=== PATIENT | female | born 1970 | race Caucasian/White ===

== ENCOUNTER → 2019-06-10 13:00 | Outpatient (CLI) | payer OTHER, SELFPAY ==
--- NOTE | ~2019-06-10 | XR_ITS ---
XR chest 2V 06/10/2019 13:23 Indication: Lower respiratory infection. Cough and shortness of breath. Procedure: 2 view chest Comparison: Comparison to multiple prior studies sequentially, with oldest reviewed study dated 07/2013. Findings: Heart size is normal. No focal air space disease, pulmonary edema, pleural effusion or susp ected pneumothorax. No acute osseous abnormality. Impression: 1: No acute cardiopulmonary disease. Reviewed, dictated and finalized at location B. OMER OPERATIONS MANAGER Impression: 1: No acute cardiopulmonary disease.
== END ==
PROVIDERS: PCP Family Medicine; Visit Provider Physician Assistant
DX: J22 Unspecified acute lower respiratory infection (principal)
CPT/HCPCS: 71046

== ENCOUNTER 2019-12-03 15:58 | Outpatient (CLI) | payer OTHER, SELFPAY ==
--- NOTE | ~2019-12-03 | MM_ITS ---
EXAMINATION: MM screening clint BI w kyree HISTORY: Screening mammogram TECHNIQUE: Craniocaudal and mediolateral oblique 3-D tomosynthesis images were obtained and synthetic 2-D images were generated. CAD analysis was submitted and interpreted. COMPARISON: 10/01/2018, 09/29/2017, 09/13/2016 BREAST PARENCHYMAL COMPOSITION: There are scattered areas of fibroglandular density. FINDINGS: There is stable focal asymmetry in the upper outer quadrant of the right breast. There is n o evidence of suspicious mass, calcification, or architectural distortion to suggest malignancy in ei ther breast. There has been no suspicious interval change. IMPRESSION: 1. No mammographic evidence of malignancy. 2. Recommend routine screening mammography in one year. BI-RADS Category 2: Benign finding(s). Reviewed, dictated and finalized at location A.
== END 2019-12-03 15:59 | disposition home or self-care (01) ==
PROVIDERS: PCP Family Medicine
DX: Z12.31 Encounter for screening mammogram for malignant neoplasm of breast (principal)
CPT/HCPCS: 77063; 77067

== ENCOUNTER 2020-03-28 01:25 | Outpatient (CLI) | payer OTHER, SELFPAY ==
[2020-03-29 01:24] LABS: SARS-CoV-2 RNA PCR Negative
== END 2020-03-28 01:26 | disposition home or self-care (01) ==
LOC: ANHCOVIDDT 01:25
PROVIDERS: PCP Family Medicine; Visit Provider Internal Medicine Gastroenterology
DX: Z01.818 Encounter for other preprocedural examination (principal); Z20.828 Contact with and (suspected) exposure to other viral communicable diseases
CPT/HCPCS: 87635; C9803; U0003

== ENCOUNTER 2020-03-31 01:57 | Day surgery (SDC) | payer OTHER, SELFPAY ==
[2020-03-25 14:17] VITALS: BMI 49.8
--- NOTE | 2020-03-30 09:37 | WPDANESEPPF ---
Anes - Initial Pre Proc Eval Procedure: Operation Date: 03/31/20 08:00 Proposed Procedures p Screening Colonoscopy - Arturo Mora MD Date/Time: 03/30/20 09:37 Surgeon: Arturo Mora MD Pre Op Diagnosis: Neoplasm Screening Patient Data Age: 49 Gender: F Height: 1.65 m Weight: 136 kg Allergies Allergy/AdvReac Type Severity Reaction Status Date / Time estrogens, conjugated Allergy Unknown UNKNOWN Verified 03/31/20 06:35 morphine Allergy Unknown ITCHING Verified 03/31/20 06:35 Home Medications Medication Instructions Recorded Confirmed Type metoprolol succinate 50 mg See Rx Instructions .ROUTE 09/09/19 03/25/20 Rx tablet,extended release 24 hr .COMPLEX #90 tablet cetirizine 10 mg tablet 10 mg PO DAILY 01/16/20 03/25/20 History valsartan 80 mg tablet 80 mg PO DAILY #30 tablet 03/18/20 03/25/20 Rx naltrexone-bupropion [Contrave] 1 tablet PO DAILY 03/25/20 03/25/20 History sodium,potassium,mag sulfates 17.5 See Rx Instructions PO .COMPLEX 03/25/20 Rx gram-3.13 gram-1.6 gram oral soln #354 ml Patient hx anesthesia problems: none Family hx anesthesia problems: none PMFSH Past Medical History Medical History (Updated 03/30/20 @ 09:37 by Parth Moralez DO) Depression GERD (gastroesophageal reflux disease) Hypertension JASS (obstructive sleep apnea) CPAP Rheumatoid arthritis Seasonal allergies Surgical History Surgical History (Updated 03/30/20 @ 09:37 by Parth Moralez DO) History of laparoscopic cholecystectomy Family History Family History Other Depression Family history of heart disease in male family member before age 55 Social History Social History Smoking status: Never smoker Second hand tobacco smoke exposure: No Alcohol intake: never Substance use: never Substance use type: does not use Living arrangements: with family Spiritual care concerns: No Anes - Eval Final PreProcedure Day of Procedure 03/30/20 09:37 Patient weight: super morbidly obese Heart: regular rate and rhythm Lungs: clear to auscultation and normal air movement Airway: Mallampati scale class II Neurological: alert and oriented Last oral intake: >/= 8 hours ASA classification: III Emergent: no Anesthetic plan: proceed Anesthesia type and monitoring: general GIVS and standard monitoring Informed Consent: The patient's anesthetic plan and its attendant risks and benefits were discussed with the patient/family/POA. Questions were solicited and answers provided to the satisfaction of the patient/family/POA.
[2020-03-31 06:36] VITALS: BP 147/82; PULSE 83; RESP 18; TEMP 36.4; O2SAT 99; BMI 51.7
[2020-03-31] MEDS: LACTATED RINGERS 1,000 ML 150 ML IV CONT (06:46)
--- NOTE | 2020-03-31 08:03 | PM.HPGS ---
History of Present Illness History of Present Illness Consent: Risks, benefits, and alternatives have been discussed and questions answered. Patient agrees to proceed with procedure. Chief complaint: Neoplasm Screening Narrative: Sarah Mathews is a 49 year old female here for screening colonoscopy, last one 10 years ago because endometriosis Review of Systems Constitutional: Constitutional: Denies headache(s) and Denies weakness Eyes: Eyes: Denies blurry vision ENT: Reports Normal hearing present, Denies headache(s) and Denies neck pain Cardiovascular: Cardiovascular: Denies chest pain and Denies dyspnea Respiratory: Respiratory: Denies dyspnea Gastrointestinal: Gastrointestinal: Reports no additional gastrointestinal complaints Genitourinary: Genitourinary: Denies dysuria Musculoskeletal: Musculoskeletal: Denies neck pain Integumentary/Breasts: Skin/Breast: Denies dry skin Neurologic: Reports Normal hearing present, Denies headache(s) and Denies weakness Psychiatric: Psychiatric: Denies anxiety Endocrine: Endocrine: Denies change in body appearance Hematologic/Lymphatic: Hematologic/Lymphatic: Denies easy bleeding Allergic/Immunologic: Allergic/Immunologic: Denies urticaria PMFSH Past Medical History Medical History (Updated 03/30/20 @ 09:37 by Parth Moralez DO) Depression GERD (gastroesophageal reflux disease) Hypertension JASS (obstructive sleep apnea) CPAP Rheumatoid arthritis Seasonal allergies Surgical History Surgical History (Updated 03/30/20 @ 09:37 by Parth Moralez DO) History of laparoscopic cholecystectomy Family History Family History Other Depression Family history of heart disease in male family member before age 55 Social History Social History Smoking status: Never smoker Second hand tobacco smoke exposure: No Alcohol intake: never Substance use: never Substance use type: does not use Living arrangements: with family Spiritual care concerns: No Meds Home Medications and Allergies Home Medications Medication Instructions Recorded Confirmed Type metoprolol succinate 50 mg See Rx Instructions .ROUTE 09/09/19 03/25/20 Rx tablet,extended release 24 hr .COMPLEX #90 tablet cetirizine 10 mg tablet 10 mg PO DAILY 01/16/20 03/25/20 History valsartan 80 mg tablet 80 mg PO DAILY #30 tablet 03/18/20 03/25/20 Rx naltrexone-bupropion [Contrave] 1 tablet PO DAILY 03/25/20 03/25/20 History sodium,potassium,mag sulfates 17.5 See Rx Instructions PO .COMPLEX 03/25/20 Rx gram-3.13 gram-1.6 gram oral soln #354 ml Allergies Allergy/AdvReac Type Severity Reaction Status Date / Time estrogens, conjugated Allergy Unknown UNKNOWN Verified 03/31/20 06:35 morphine Allergy Unknown ITCHING Verified 03/31/20 06:35 Vital Signs Vital Signs - 24 hr 03/31/20 06:36 Temperature 97.6 F Pulse Rate 83 Respiratory Rate 18 Blood Pressure 147/82 H Pulse Oximetry 99 Exam Const: General: comfortable and no acute distress HENMT: General nose exam: Normal nares present Eyes: General: appearance normal, both eyes and all related structures Neck: Neck: no JVD Resp: Auscultation: clear to auscultation bilaterally Cardio: Rate: regular rate Rhythm: regular rhythm GI: Inspection: non-distended GI Palp: Yes Soft to palpation Skin: General skin exam: normal color Neuro: General: gait normal Speech: normal speech Extrem: General: normal to inspection Psych: Mental Status: mental status grossly normal Assessment and Plan Assessment and plan (1) Colon cancer screening: Code(s): Z12.11 - Encounter for screening for malignant neoplasm of colon Status: Acute Assessment and Plan: will proceed with colonoscopy (2) Obesity: Code(s): E66.9 - Obesity, unspecified Status: Acute
[2020-03-31 08:21] VITALS: BP 141/76; PULSE 75; RESP 22; O2SAT 100
[2020-03-31 08:31] VITALS: BP 138/74; PULSE 71; RESP 20; O2SAT 100
[2020-03-31 08:41] VITALS: BP 142/78; PULSE 74; RESP 18; O2SAT 100
== END 2020-03-31 08:55 | disposition home or self-care (01) ==
PROVIDERS: PCP Family Medicine; Visit Provider Internal Medicine Gastroenterology
PROC: 0DJD8ZZ Inspection of Lower Intestinal Tract, Via Natural or Artificial Opening Endoscopic (ICD-10-PCS; CPT 45378; principal; 2020-03-31 08:00)
DX: Z12.11 Encounter for screening for malignant neoplasm of colon (principal); K63.5 Polyp of colon; K64.8 Other hemorrhoids; F32.9 Major depressive disorder, single episode, unspecified; K21.9 Gastro-esophageal reflux disease without esophagitis; I10 Essential (primary) hypertension; G47.33 Obstructive sleep apnea (adult) (pediatric); M06.9 Rheumatoid arthritis, unspecified; E66.01 Morbid (severe) obesity due to excess calories; Z68.43 Body mass index [BMI] 50.0-59.9, adult
CPT/HCPCS: 45380; 87635; 88305; C9803; J2704; J7120; U0003

== ENCOUNTER → 2020-07-08 11:22 | Outpatient (CLI) | payer OTHER, SELFPAY ==
--- NOTE | ~2020-07-08 | XR_ITS ---
EXAMINATION: XR thoracic spine 3V DATE: 07/08/2020 11:35 INDICATION: Dorsalgia, unspecified. TECHNIQUE: 3 views of thoracic spine were obtained. COMPARISON: Thoracic spine radiographs 09/15/2014 FINDINGS: There is 6 degrees dextrocurvature of thoracolumbar spine. There is 3 degrees levocurvature of upper thoracic spine. Vertebral body heights are normal. There are endplate osteophytes at all le vels. There is mild to moderately decreased disc height at multiple levels in mid thoracic spine. Negrito cified lung nodules and calcified hilar and mediastinal lymph nodes are consistent with old granuloma tous disease. IMPRESSION: 1. Moderate thoracic spondylosis. Reviewed, dictated and finalized at location A.
== END ==
PROVIDERS: PCP Family Medicine; Visit Provider Physician Assistant
DX: M47.814 Spondylosis without myelopathy or radiculopathy, thoracic region (principal)
CPT/HCPCS: 72072

== ENCOUNTER 2020-12-08 15:41 | Outpatient (CLI) | payer OTHER, SELFPAY ==
--- NOTE | ~2020-12-08 | MM_ITS ---
EXAMINATION: MM screening clint BI w kyree HISTORY: Screening TECHNIQUE: Craniocaudal and mediolateral oblique 3-D tomosynthesis images were obtained and synthetic 2-D images were generated. CAD analysis was submitted and interpreted. COMPARISON: Comparison to multiple prior studies sequentially, with oldest reviewed study dated 09/2014. BREAST PARENCHYMAL COMPOSITION: There are scattered areas of fibroglandular density. FINDINGS: Stable scattered fibroglandular. There is no evidence of suspicious mass, calcification, or architectural distortion to suggest malignancy in either breast. There has been no suspicious interv al change. IMPRESSION: 1. No mammographic evidence of malignancy. 2. Recommend routine screening mammography in one year. BI-RADS Category 1: Negative Reviewed, dictated and finalized at location A.
== END 2020-12-08 15:42 | disposition home or self-care (01) ==
LOC: ANHIMG 15:45
PROVIDERS: PCP Family Medicine
DX: Z12.31 Encounter for screening mammogram for malignant neoplasm of breast (principal)
CPT/HCPCS: 77063; 77067

== ENCOUNTER 2021-10-24 03:28 | Emergency (ER) | payer OTHER, SELFPAY ==
[2021-10-24 03:36] VITALS: BP 137/81; PULSE 74; RESP 16; O2SAT 100
[2021-10-24] MEDS: TETRACAINE HCL 0.5% OPHTH SOLN 4 ML BTL 1 DROP EACH EYE (03:52)
--- NOTE | 2021-10-24 04:02 | ED.GENADULT ---
HPI - General Adult General Chief complaint: Eye Problems Stated complaint: rt eye pain, possible corneal abrasion Time Seen by Provider: 10/24/21 03:41 History of Present Illness HPI narrative: Patient 51-year-old female who presents the emergency department with chief complaint of right eye irritation. Patient reports he was removing her contact lens and scraped her eye. Patient states that hurts whenever she opens the she is attempted to use vyuq-zjo-swungxy eyedrops without relief. Patient reports no change in vision reports no fever or purulent drainage. Related Data Home Medications Medication Instructions Recorded Confirmed cetirizine 10 mg tablet (Zyrtec) 10 mg PO DAILY 01/16/20 01/13/21 calcium carbonate 500 mg calcium 500 mg PO TID 09/21/21 (1,250 mg) chewable tablet (Calcium 500) iron,carbonyl 100 mg-vitamin C 250 1 tablet PO DAILY 09/21/21 mg tablet mecobalamin (vitamin B12) 1,000 1,000 mcg sublingual DAILY 09/21/21 mcg disintegrating tablet,sublingual ppzoopaw-ywlsrofw-[id number] 45 mg-folic cap PO 09/21/21 acid 800 mcg-vit K 120 mcg capsule (Bariatric Multivitamins) Allergies Allergy/AdvReac Type Severity Reaction Status Date / Time estrogens, conjugated Allergy Unknown UNKNOWN Verified 09/21/21 11:52 morphine Allergy Unknown ITCHING Verified 09/21/21 11:52 Review of Systems Review of Systems: A 10 system review of systems was completed on the patient and is negative except for what is stated in the HPI. Nursing and ancillary documentation was reviewed. [facility] Past Medical History Medical History Depression GERD (gastroesophageal reflux disease) Hypertension JASS (obstructive sleep apnea) CPAP Rheumatoid arthritis Seasonal allergies Surgical History Surgical History History of laparoscopic cholecystectomy History of sleeve gastrectomy History of weight loss surgery Status post gastric bypass for obesity Family History Family History Other Depression Family history of heart disease in male family member before age 55 Social History Social History Smoking status: Never smoker Second hand tobacco smoke exposure: No Alcohol intake: never Substance use: never Substance use type: does not use Gender identity (if verbalized by the patient): Female Spiritual care concerns: No Exam Narrative: GENERAL: Well-appearing, well-nourished, and in no acute distress. HEAD: Normocephalic, atraumatic. EYES: PERRLA and EOMI. there is a large corneal abrasion present on the right cornea ENT: Nares clear, no rhinorrhea or epistaxis. Mucous membranes moist. NECK: Supple. CHEST: Clear to auscultation. No respiratory distress. HEART: Regular rate and rhythm. No murmur heard. Normal peripheral pulses. ABDOMEN: Soft, nontender, nondistended, normal active bowel sounds. EXTREMITIES: Normal range of motion. No edema. SKIN: Warm, dry, no rash. NEURO: No focal deficits. Alert and oriented x3. PSYCH: Normal mood and affect. Course Course Emergency Course: The right eye was examined using fluorescein and the patient has a large corneal abrasion present. Vital Signs Vital signs: Vital Signs Pulse Rate 74 10/24/21 03:36 Respiratory Rate 16 10/24/21 03:36 Blood Pressure 137/81 10/24/21 03:36 Pulse Oximetry 100 10/24/21 03:36 Oxygen Delivery Room Air 10/24/21 03:36 Pulse Rate 74 10/24/21 03:36 Respiratory Rate 16 10/24/21 03:36 Blood Pressure 137/81 10/24/21 03:36 Pulse Oximetry 100 10/24/21 03:36 Oxygen Delivery Room Air 10/24/21 03:36 Medical Decision Making Vital Signs Vital Signs: Vital Signs Pulse Rate 74 10/24/21 03:36 Respiratory Rate 16 10/24/21 03:36 Blood Pr
[2021-10-24] MEDS: GENTAMICIN SULFATE 0.3% OP SOL 5 ML BTL 1 DROP RIGHT EYE (04:15)
[2021-10-24 04:16] VITALS: TEMP 36.4
== END 2021-10-24 04:17 | disposition home or self-care (01) ==
PROVIDERS: Emergency Provider Emergency Medicine; PCP Family Medicine
DX: S05.01XA Injury of conjunctiva and corneal abrasion without foreign body, right eye, initial encounter (principal); I10 Essential (primary) hypertension; G47.33 Obstructive sleep apnea (adult) (pediatric); M06.9 Rheumatoid arthritis, unspecified; K21.9 Gastro-esophageal reflux disease without esophagitis; Z98.84 Bariatric surgery status; W22.8XXA Striking against or struck by other objects, initial encounter
CPT/HCPCS: 99283; A9270

== ENCOUNTER → 2021-12-29 16:07 | Outpatient (CLI) | payer OTHER, SELFPAY ==
--- NOTE | ~2021-12-29 | XR_ITS ---
XR cervical spine 4-5V INDICATION: Cervicalgia TECHNIQUE: 4 views of the cervical spine. FINDINGS: No prior studies for comparison. The cervical spine is visualized to the cervicothoracic junction. There is no prevertebral soft tiss ue swelling, listhesis, or loss of vertebral body height. Intervertebral disc spaces are normal. Th e osseous central canal is patent. No displaced cervical spine fractures are identified. IMPRESSION: 1. No acute osseous abnormality of the cervical spine. Reviewed, dictated and finalized at location A.
== END ==
PROVIDERS: PCP Physician Assistant; Visit Provider Physician Assistant
DX: M54.2 Cervicalgia (principal)
CPT/HCPCS: 72050

== ENCOUNTER 2022-03-21 15:33 | Outpatient (CLI) | payer OTHER, SELFPAY ==
--- NOTE | ~2022-03-21 | MM_ITS ---
EXAMINATION: MM screening clint BI w kyree HISTORY: Screening TECHNIQUE: Craniocaudal and mediolateral oblique 3-D tomosynthesis images were obtained and synthetic 2-D images were generated. CAD analysis was submitted and interpreted. COMPARISON: Comparison to multiple prior studies sequentially, with oldest reviewed study dated 05/2015. BREAST PARENCHYMAL COMPOSITION: Breast composed of scattered areas of fibroglandular density FINDINGS: There are developing asymmetries in the upper inner quadrant of the left breast and lateral ly in the left breast on CC view. The right breast is stable without evidence for malignancy. IMPRESSION: 1. Developing left breast asymmetries. 2. Additional mammographic views and possible breast ultrasound are recommended. BI-RADS Category 0: Incomplete: Needs additional imaging evaluation. Reviewed, dictated and finalized at location B. SETTER AND DRILLER IMPRESSION: 1. Developing left breast asymmetries. 2. Additional mammographic views and possible breast ultrasound are recommended . BI-RADS Category 0: Incomplete: Needs additional imaging evaluation.
== END 2022-03-21 15:34 | disposition home or self-care (01) ==
LOC: ANHIMG 15:36
PROVIDERS: PCP Family Medicine; Visit Provider Family Medicine
DX: Z12.31 Encounter for screening mammogram for malignant neoplasm of breast (principal); R92.8 Other abnormal and inconclusive findings on diagnostic imaging of breast
CPT/HCPCS: 77063; 77067

== ENCOUNTER 2022-04-08 13:37 | Outpatient (CLI) | payer OTHER, SELFPAY ==
--- NOTE | ~2022-04-08 | MMUS_ITS ---
EXAMINATION: MM diagnostic clint LT w kyree, US breast LT complete HISTORY: Developing left breast asymmetries reported on 03/31/2022 screening mammogram: Upper inner q uadrant and lateral left breast TECHNIQUE: Additional 3-D tomosynthesis images of the left breast were performed and synthetic 2-D im ages were generated. CAD analysis was submitted and interpreted. Complete left breast ultrasound exam ination was performed. COMPARISON: 03/21/2022 bilateral screening mammogram Serial mammogram examinations dating back to 09/13/2016 BREAST PARENCHYMAL COMPOSITION:. There are scattered areas of fibroglandular density. LEFT DIAGNOSTIC MAMMOGRAM FINDINGS: There is focal asymmetry in the anterior inner left breast and la teral left breast on CC view. There are corresponding similar asymmetries in these areas dating back to 09/13/2016. Left breast ultrasound correlation was obtained. LEFT COMPLETE BREAST ULTRASOUND: No definite mass or abnormal vascularity is identified. Minimal sub tle shadowing is suggested at 2:00 which may correspond to the focal mammographic asymmetry in the la teral left breast. 6 month diagnostic left mammogram and left breast ultrasound follow-up are recommended IMPRESSION: 1. Probable benign finding 2. Six-month diagnostic left mammogram and left breast ultrasound follow-up are recommended. BI-RADS category 3, probably benign findings. Reviewed, dictated and finalized at location A. GE MATE IMPRESSION: 1. Probable benign finding 2. Six-month diagnostic left mammogram and left breast ultrasound follow-up are recommended. BI-RADS category 3, probably benign findings.
== END 2022-04-08 13:38 | disposition home or self-care (01) ==
LOC: ANHIMG 13:42
PROVIDERS: PCP Family Medicine; Visit Provider Physician Assistant
DX: R92.8 Other abnormal and inconclusive findings on diagnostic imaging of breast (principal)
CPT/HCPCS: 76641; 77061; 77065; G0279

== ENCOUNTER 2022-10-07 11:04 | Outpatient (CLI) | payer OTHER, SELFPAY ==
--- NOTE | ~2022-10-07 | MMUS_ITS ---
EXAMINATION: MM diagnostic clint LT w kyree, US breast LT limited HISTORY: Six-month follow-up of probable benign finding TECHNIQUE: Full-field and spot ML, MLO and CC 3-D tomosynthesis images of the left breast were perfor med and synthetic 2-D images were generated. CAD analysis was submitted and interpreted. High resolut ion upper outer quadrant and upper inner quadrant left breast ultrasound was performed. COMPARISON: 04/08/2022 diagnostic left mammogram and complete left breast ultrasound examination 03/21/2022, 12/08/2020, 12/03/2019 bilateral screening mammogram examinations BREAST PARENCHYMAL COMPOSITION: There are scattered areas of fibroglandular density. FINDINGS: MAMMOGRAPHIC FINDINGS: No interval suspicious mass, architectural distortion, malignant constipation, skin thickening or ret raction or significant new or developing density is noted since 12/03/2019. ULTRASOUND: No suspicious mass, suspicious shadowing, cyst or other significant sonographic abnormality is noted. IMPRESSION: 1. No mammographic evidence of malignancy 2. Routine annual mammographic screening is recommended BI-RADS Category 1: Negative Reviewed, dictated and finalized at location A. IMPRESSION: 1. No mammographic evidence of malignancy 2. Routine annual mammographic screening is recommended BI-RADS Category 1: Negative
== END 2022-10-07 11:05 | disposition home or self-care (01) ==
PROVIDERS: PCP Family Medicine; Visit Provider Physician Assistant
DX: R92.8 Other abnormal and inconclusive findings on diagnostic imaging of breast (principal)
CPT/HCPCS: 76642; 77061; 77065; G0279

== ENCOUNTER 2023-10-20 07:18 | Outpatient (CLI) | payer OTHER, SELFPAY ==
--- NOTE | ~2023-10-20 | MM_ITS ---
EXAMINATION: MM screening clint BI w kyree HISTORY: Screening TECHNIQUE: Craniocaudal and mediolateral oblique 3-D tomosynthesis images were obtained and synthetic 2-D images were generated. CAD analysis was submitted and interpreted. COMPARISON: Comparison to multiple prior studies sequentially, with oldest reviewed study dated 10/01. BREAST PARENCHYMAL COMPOSITION: Not dense: There are scattered areas of fibroglandular density. FINDINGS: The right breast is stable without evidence for malignancy. There is a developing asymmetry in the upper inner quadrant of the left breast anteriorly. IMPRESSION: 1. Developing left breast asymmetry. 2. Additional mammographic views and possible breast ultrasound are recommended. BI-RADS Category 0: Incomplete: Needs additional imaging evaluation. Reviewed, dictated and finalized at location B. IMPRESSION: 1. Developing left breast asymmetry. 2. Additional mammographic views and possible breast ultrasound are recommended . BI-RADS Category 0: Incomplete: Needs additional imaging evaluation.
== END 2023-10-20 07:19 | disposition home or self-care (01) ==
LOC: ANHIMG 07:19
PROVIDERS: PCP Family Medicine; Visit Provider Family Medicine
DX: Z12.31 Encounter for screening mammogram for malignant neoplasm of breast (principal); R92.8 Other abnormal and inconclusive findings on diagnostic imaging of breast
CPT/HCPCS: 77063; 77067

== ENCOUNTER 2023-10-24 12:44 | Outpatient (CLI) | payer OTHER, SELFPAY ==
--- NOTE | ~2023-10-24 | MMUS_ITS ---
EXAMINATION: MM diagnostic clint LT w kyree, US breast LT limited HISTORY: Follow-up left breast asymmetries TECHNIQUE: Additional 3-D tomosynthesis images of the left breast were performed and synthetic 2-D im ages were generated. CAD analysis was submitted and interpreted. High resolution Limited left breast ultrasound was performed. COMPARISON: Comparison to multiple prior studies sequentially, with oldest reviewed study dated 12/02. BREAST PARENCHYMAL COMPOSITION: Not dense: There are scattered areas of fibroglandular density. FINDINGS: MAMMOGRAPHIC FINDINGS: Asymmetries are persistent in the upper central aspect of the left breast, although no discrete mass identified. There are no suspicious calcifications or architectural distortion. ULTRASOUND: Limited left breast ultrasound: No discrete solid or cystic mass is identified in the area of mammogr aphic concern. IMPRESSION: 1. Probable benign asymmetry of the left breast. No sonographic correlate. 2. Recommend 6 month follow-up diagnostic left mammogram BI-RADS category 3, probably benign findings. Reviewed, dictated and finalized at location B. IMPRESSION: 1. Probable benign asymmetry of the left breast. No sonographic correlate. 2. Recommend 6 month follow-up diagnostic left mammogram BI-RADS category 3, probably benign findings.
== END 2023-10-24 12:45 | disposition home or self-care (01) ==
PROVIDERS: PCP Family Medicine; Visit Provider Family Medicine
DX: R92.8 Other abnormal and inconclusive findings on diagnostic imaging of breast (principal)
CPT/HCPCS: 76642; 77061; 77065; G0279

== ENCOUNTER 2024-04-29 10:17 | Outpatient (CLI) | payer OTHER, SELFPAY ==
--- NOTE | ~2024-04-29 | MMUS_ITS ---
EXAMINATION: MM diagnostic clint LT w kyree, US breast LT complete HISTORY: Follow-up left breast asymmetries TECHNIQUE: Additional 3-D tomosynthesis images of the left breast were performed and synthetic 2-D im ages were generated. CAD analysis was submitted and interpreted. High resolution complete left breast ultrasound was performed. COMPARISON: Comparison to multiple prior studies sequentially, with oldest reviewed study dated 12/08. BREAST PARENCHYMAL COMPOSITION: Not dense: There are scattered areas of fibroglandular density. FINDINGS: MAMMOGRAPHIC FINDINGS: There are no new suspicious masses, architectural distortion or calcifications. Asymmetries of the le ft breast are unchanged allowing for differences of technique. ULTRASOUND: Complete US of all 4 quadrants of the left breast/s and retroareolar region was reviewed. Normal hete rogeneous echotexture without focal solid or cystic mass. IMPRESSION: 1. No evidence for malignancy in the left breast. 2. Routine yearly screening mammogram and regular clinical breast examination are recommended. BI-RADS Category 2: Benign finding(s). Reviewed, dictated and finalized at location A. WORKER IMPRESSION: 1. No evidence for malignancy in the left breast. 2. Routine yearly screening mammogram and regular clinical breast examination a re recommended. BI-RADS Category 2: Benign finding(s).
== END 2024-04-29 10:18 | disposition home or self-care (01) ==
LOC: ANHIMG 10:20
PROVIDERS: PCP Family Medicine; Visit Provider Family Medicine
DX: R92.8 Other abnormal and inconclusive findings on diagnostic imaging of breast (principal)
CPT/HCPCS: 76641; 77061; 77065; G0279

== ENCOUNTER 2024-10-30 09:23 | Outpatient (CLI) | payer OTHER, SELFPAY ==
--- NOTE | ~2024-10-30 | MM_ITS ---
EXAMINATION: MM screening clint BI w kyree HISTORY: Screening TECHNIQUE: Craniocaudal and mediolateral oblique 3-D tomosynthesis images were obtained and synthetic 2-D images were generated. CAD analysis was submitted and interpreted. COMPARISON: Comparison to multiple prior studies sequentially, with oldest reviewed study dated 10/01. BREAST PARENCHYMAL COMPOSITION: There are scattered areas of fibroglandular density. FINDINGS: There is no evidence of suspicious mass, calcification, or architectural distortion to sug gest malignancy in either breast. IMPRESSION: 1. No mammographic evidence of malignancy. 2. Recommend routine screening mammography in one year. BI-RADS Category 1: Negative Reviewed, dictated and finalized at location B.
--- OUTSIDE RECORDS SUMMARY | 2024-10-30 09:40 | XMS_ITS | Clinical Summary ---
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 Gender Identity Not on file Sexual Orientation Not on file Plan of Treatment Health Maintenance Due Date Last Done Comments Hepatitis C Virus (HCV) Screening 1970 TdaP Immunization 1970 Hepatitis B Immunization (1 of 3 - 19+ 3-dose series) 1989 Pap Smear 1991 Cervical Cancer Screening (CCS) 2000 HPV/Cotest 2000 Colonoscopy 2015 Colorectal Cancer Screening 2015 Cologuard 2020 Immunochemical Fecal Occult Blood 2020 Mammogram 2020 Pneumococcal Immunization (5 0+ years) (1 of 1 - PCV) 2020 Zoster Immunization (1 of 2) 2020 Influenza Immunization (#1) 2023 01/08/2014 SARS-COV-2 Immunization ( - 2023- season) 2023 Respiratory Syncytial Virus (RSV) Immunization (Adult) (1 - 1-dose 75+ series) 2045 Meningococcal Immunization (ACWY) Aged Out No longer eligible based on patient's age to complete this topic Pneumococcal Immunization Combined Aged Out No longer eligible based on patient's age to complete this topic Rotavirus Immunization Aged Out No lo nger eligible based on patient's age to complete this topic
--- OUTSIDE RECORDS SUMMARY | 2024-10-30 09:40 | XMS_ITS | Patient Health Record ---
Author Organization [facility] Address [address] [place], [place] [address] Care Team Providers Care Rag Room Supervisor Name Role Phone DANIELA JOHNSON MD Primary Care Provider Wayne HazelDedra Unavailable [phone] REASON FOR REFERRAL No Information MEDICATIONS Medication SIG (Take, Route, Frequency, Duration) Notes Start Date End Date Status valsartan 80 mg 1 tab(s) orally once a day Active ZyrTEC 10 mg 1 tab(s) orally once a day Active Tylenol Arthritis Caplet 650 mg 1 Tablet orally 4 times a day 10/13/2014 Active iron oral Active multivitamin Active calcium po Active biotin Active famotidine 20 mg 1 tab(s) orally 2 ti mes a day Active SOCIAL HISTORY Tobacco Use: Social History Observation Description Date Details (start date - stop date) Never Smoker NA - NA Sex Assigned At : Social History Observation Description Sex Assigned At Unknown Tobacco Use: Question Answer Notes Smoking Status nonsmoker PROBLEMS Problem Type ICD Code Onset Dates Problem Status W/U Status Risk SNOMED Code Notes Problem Other care home (current) drug therapy (Z79.899) Active confirmed 010480264 Problem Rheumatoid factor positive (R76.8) Active confirmed 069131421 Problem Polyarthralgia (M25.50) Active confirmed 18431037 Problem Lumbago with sciatica, unspecified side (M54.40) Active confirmed 008331643 Problem Non-smoker (Z78.9) Active confirmed 839 2000 Problem Bilateral hip pain (M25.551) Active confirmed 84281181 Problem Myalgia (M79.10) Active confirmed 31844 001 Problem Low back pain at multiple sites (M54.5) Active confirmed 928630153 PLAN OF TREATMENT Pending Test Test Name Order Date Sed Rate (IH) 01/13/2015 X ray : Spines, lumbar- outside order X ray : Hand left- outside order 021 X ray : Hand right- outside order 2020 X-RAY T-SPINE 09/15/2014 X ray : SI joints- outside order 021 X ray : Hip, left- outside order 021 X ray : Hip, right- outside order 2020 PT Evaluate and treat 08/27/2020 Insurance Providers Payer Name Payer Address Payer Phone Subscriber Number Group Number Insured Name Patient Relationship to Insured Coverage Start Date Coverage End Date [facility] [address] [address] [place] [address] [id number] BILLY GONZALEZ Spouse - patient is the spouse of the insured MEDICAL (GENERAL) HISTORY Medical History History ICD Code tension headaches blurred vision ear ache Ringing in ears chest pain high blood pressure swelling of ankles/feet varicose veins poor circulation bloating bowel changes diarrhea gas hemorrhoids indigestion Nausea rectal bleeding stomach pain/cramps gallstones weight gain Lack of bladder control kidney infection bleeding between periods extreme menstrual pain Hot Flashes vaginal infections hayfever sinus problems hoarseness bronchitis constipation weight loss Surgical History Surgery Date(Month/Year) dnc 1996 C section 1998,2002 tubal ligation 2005 ablation 2006 gallbladder surgery 2015 diagnostic ovarian 2015 uterine ablation hysterectomy gastric sleeve 2020
--- OUTSIDE RECORDS SUMMARY | 2024-10-30 09:40 | XMS_ITS | Clinical Summary ---
Author Organization [facility] Address [address] [place] [address] Phone Care Team Providers Care Jalousies Installer Name Role Phone Allie Reynolds MD Primary Care Provider [phone] Allergies Active Allergy Reactions Criticality Noted Date Comments Estrogens Unknown 04/27/2020 Morphine Itching High 12/12/2014 Medications BIOTIN ORAL Take 2 Tablets by mouth daily. Active multivitamin (DAILY-TRENA) tablet Take 1 Tablet by mouth daily. Active famotidine (PEPCID) 20 mg tablet Take 1 Tablet (20 mg) by mouth 2 times daily. 60 Tablet 2 04/28/2020 1:[address] 04/27/2020 Active Active Problems Problem Noted Date Diagnosed Date Postoperative follow-up 04/28/2020 History of gastrectomy 04/28/2020 Endometriosis determined by laparoscopy 07/11/19 19 TLH/RSO/LS 04/01, percocet/m otrin, general diet, scripts in chart, needs NOS at 2000 04/01/2015 Back pain 10/17/2014 Abnormal uterine bleeding 10/17/2014 History of delivery x 2 10/17/2014 Pelvic adhesions 10/17/2014 Morbid obesity with BMI of 50.0-59.9, adult 10/08 Resolved Problems Problem Noted Date Diagnosed Date Resolved Date Ovarian cyst, left 10/17/2014 5 Encounters Date Type Department Care Team Description 09/24/2024 External Device Data STL ABSTRACTION Provider, Abstract 08/29/2024 External Device Data STL ABSTRACTION Provider, Abstract 08/28/2024 External Device Data STL ABSTRACTION Provider, Abstract 08/27/2024 External Device Data STL ABSTRACTION Provider, Abstract 08/13/2024 External Device Data STL ABSTRACTION Provider, Abstract from Last 3 Months Immunizations Immunization Administration Dates Next Due Influenza Seasonal Unspecified Formulation IM ,02/08/2015 Family History Medical History Relation Name Comments Diabetes Father Glaucoma Father Hypertension Father Heart Disease Maternal Grandmother Diabetes Mother Glaucoma Mother Hypertension Mother Heart Disease Paternal Grandmother Hypertension Sister Stroke Sister Relation Name Status Comments Father Maternal Grandmother Mother Paternal Grandmother Sister Social History Tobacco Use Types Packs/Day Years Used Date Smoking Tobacco: Never Smokeless Tobacco: Never Alcohol Use Standard Drinks/Week Comments No 0 (1 standard drink = 0.6 oz pur e alcohol) Comments No Sex and Gender Information Value Date Recorded Sex Assigned at Not on file Legal Sex Female 4:02 PM CDT Gender Identity Not on file Sexual Orientation Not on file Occupation Industry Job Start Date Job End Date teacher Not on file Not on file Not on file Last Filed Vital Signs Vital Sign Reading Time Taken Comments Blood Pressure 120/64 10/18/2023 7:28 AM CDT Pulse 58 04/28/2020 12:[address] Temperature 36.8 C (98.2 F) 04/28/2020 12:[address] Respiratory Rate 20 04/28/2020 12:[address] Oxygen Saturation 100% 04/28/2020 12:[address] Inhaled Oxygen Concentration - - Weight 95.3 kg (210 lb 3.2 oz) 10/18/2023 7:28 A M CDT Height 165.1 cm (5' 5) 10/18/2023 7:28 AM CDT Body Mass Index 34.98 10/18/2023 7:28 AM CDT Plan of Treatment Upcoming Encounters Date Type Department Care Team (Late st Contact Info) Description 10/30/2024 1:00 PM CDT Office Visit [facility] - [address] [facility] [address] [address] [place] [address] [facility] [address] [place] [address] Health Maintenance Due Date Last Done Comments Pre-Diabetes and Diabetes Screening 1970 DTAP/TDAP/TD VACCINES (1 - Tdap) 1989 HEPATITIS B VACCINES (1 of 3 - 19+ 3-dose series) 1989 COLORECTAL SCREENING 2015 Colorectal Cancer Screening 2015 FIT-DNA Q 3 years 2015 FIT/FOBT Q 1 year 2015 Flex Sig/CT Colonography Q 5 years 2015 ZOSTER VACCINE (1 of 2) 2020 BREAST CANCER SCREENING 12/08/2021 12/09/19, 12/03/2019, 10/01/2018, Additional history exists Preventative Visit- Commercial 04/10/2024 0 10/18/2023, 05/11/2022, 10/29/2019, Additional history exists INFLUENZA VACCINE (#1) 2024 01/26/2020, 2014 Medical Devices Implanted Type Area Clay Hoister Device Identifier Shelf Expiration Date Model / Serial / Lot Seamguard Endogia 60 Blk [id number] - [id number] Implanted:Qty : 2 on 04/27/2020 by Neisha Awan MD at [facility] N/A: Abdomen [employer] 10/06/2022 [id number] / / [id number] Seamguard Endogia 60 Prpl [id number] - [id number] Implanted:Qty : 4 on 04/27/2020 by Neisha Awan MD at [facility] N/A: Abdomen [employer] 11/26/2022 [id number] / / [id number] Sealant Floseal W/ Adptr 10ml [id number] - [id number] Implanted:Qty : 1 on 04/01/2015 by Sadi Bernabe MD at [facility] Sealant N/A: Pelvis [employer] 06/07/2016 [id number] / / [id number] Procedures Procedure Name Priority Date/Time Associated Diagnosis Comments MAMMO SCREEN BILAT W OR WO CAD Routine 12/08/2020 from Last 3 Months or Most Recently Relevant to Health Maintenance Results * MAMMO SCREEN BILAT W OR WO CAD (12/08/2020) Anatomical Region Laterality Modality Breast Bilateral Mammography us Abstract Provider MAMMO ORDERABLES Edited Result - Final from Last 3 Months or Most Recently Relevant to Health Maintenance Insurance [facility] [id number] RX [facility] [employer] Advance Directives For more information, please contact: [phone] * Full Code (Latest Code Status on File) Date Activated Date Inactivated Comments 04/27/2020 11:47 AM 04/28/2020 4:53 PM * Full Code Date Activated Date Inactivated Comments 04/01/2015 5:42 PM 04/02/2015 2:10 PM * Full Code Date Activated Date Inactivated Comments 04/01/2015 10:27 AM 04/01/2015 5:42 PM * Full Code Date Activated Date Inactivated Comments 12/12/2014 9:37 AM 12/12/2014 2:23 PM * Full Code Date Activated Date Inactivated Comments 12/12/2014 6:48 AM 12/12/2014 9:37 AM Care Teams Jalousies Installer Relationship Specialty Start Date End Date Allie Reynolds MD [address] [place] [id number] PCP - General Family Practice 02/12/15
== END 2024-10-30 09:24 | disposition home or self-care (01) ==
LOC: ANHIMG 09:25
PROVIDERS: PCP Family Medicine; Visit Provider Family Medicine
DX: Z12.31 Encounter for screening mammogram for malignant neoplasm of breast (principal)
CPT/HCPCS: 77063; 77067

== ENCOUNTER 2025-02-14 09:49 | Outpatient (CLI) | payer OTHER, SELFPAY ==
--- NOTE | ~2025-02-14 | DEXA_ITS ---
Bone Density Report Name: CARLOS GONZALEZ Age: 54 Sex: Female Ethnicity: White Date of : 1970 Indication: postmenopausal; screening for osteoporosis; hysterectomy; Referring Provider: SYL ROACH Study: Bone densitometry was performed. Exam Date: February 14, 2025 Accession number: [id number] Bone Density: Region BMD T-score Z-score Classification AP Spine(L1-L4) 0.964 -0.8 0.3 Normal Femoral Neck (Left) 0.812 -0.3 0.7 Normal Total Hip (Left) 0.935 -0.1 0.6 Normal Femoral Neck (Right) 0.782 -0.6 0.4 Normal Total Hip (Right) 1.003 0.5 1.2 Normal Total Hip Mean 0.969 0.2 0.9 Normal World Health Organization criteria for BMD impression classify patients as: Normal (T-score at or above -1.0), Osteopenia (T-score between -1.0 and -2.5), or Osteoporosis (T-score at or below -2.5). 10-year Fracture Risk: FRAX not reported because: All T-scores for Spine Total, Hip Total, Femoral Neck at or above -1.0 Clinical Information Provided by Patient: Has used the following medications: Calcium Has the following medical conditions: Hysterectomy, gastric sleeve Patient maximum height was 65 Menopause Age: 40 No regular weight bearing exercise Drinks caffeinated beverages Onset of menses at age 13 Number of children 2 Impression: The patient has normal bone mass. Discussion: BONE DENSITY IS ABOVE THE MINIMUM DESIRABLE LEVEL AT ALL SKELETAL SITES TESTED. This patient?s bone mineral density is above the minimum desirable level (T-score -1.0 or better) at all sites measured. The patient should follow a healthful lifestyle (good nutrition with adequate calcium and vitamin D, and appropriate weight-bearing exercise). Follow-Up: Consider repeating this study in 5 years or sooner if there is some new clinical indication. Reported by: MAXIMO on 02/14/2025 10:09:00 AM. Reviewed, dictated and finalized at location A.
== END 2025-02-14 09:50 | disposition home or self-care (01) ==
LOC: MICIMG 09:50
PROVIDERS: PCP Family Medicine; Visit Provider Student in an Organized Health Care Education/Training Program
DX: N95.9 Unspecified menopausal and perimenopausal disorder (principal)
CPT/HCPCS: 77080

== ENCOUNTER 2025-04-01 03:50 | Day surgery (SDC) | payer OTHER, SELFPAY ==
[2025-03-13 11:39] VITALS: BMI 33.0
--- OUTSIDE RECORDS SUMMARY | 2025-04-01 03:53 | XMS_ITS | Clinical Summary ---
Author Organization [facility] Address [address] [place] [address] Phone Care Team Providers Care Decorative Engraver Apprentice Name Role Phone Allie Reynolds MD Primary Care Provider [phone] Allergies Active Allergy Reactions Criticality Noted Date Comments Estrogens Unknown 04/27/2020 Morphine Itching High 12/12/2014 Medications BIOTIN ORAL Take 2 Tablets by mouth daily. Active multivitamin (DAILY-TRENA) tablet Take 1 Tablet by mouth daily. Active famotidine (PEPCID) 20 mg tablet Take 1 Tablet (20 mg) by mouth 2 times daily. 60 Tablet 2 04/28/2020 1:40 PM ROLL FORMING MACHINE SET UP OPERATOR 04/27/2020 Active fexofenadine (FLORENCIA) 180 mg tablet Take 180 mg by mouth daily. Active ipratropium bromide (ATROVENT) 21 mcg (0.03 %) [place], Non-Aerosol spray 2 sprays into each nostril twice a day 09/27/2024 Active Active Problems Problem Noted Date Diagnosed Date Postoperative follow-up 04/28/2020 History of gastrectomy 04/28/2020 Endometriosis determined by laparoscopy 07/11/19 TLH/RSO/LS 04/01, percocet/m otrin, general diet, scripts in chart, needs NOS at 199904/01/2015 Back pain 10/17/2014 Abnormal uterine bleeding 10/17/2014 History of delivery x 2 10/17/2014 Pelvic adhesions 10/17/2014 Morbid obesity with BMI of 50.0-59.9, adult 10/08 Resolved Problems Problem Noted Date Diagnosed Date Resolved Date Ovarian cyst, left 10/17/2014 5 Encounters Date Type Department Care Team Description 03/25/2025 External Device Data STL ABSTRACTION Provider, Abstract 03/21/2025 7:05 AM ROLL FORMING MACHINE SET UP OPERATOR Anesthesia Event Replaced By [facility] [address] [place] [address] Cal Soto MD Crory, Maria C, ISAURO 03/21/2025 7:00 AM ROLL FORMING MACHINE SET UP OPERATOR - 03/21/2025 7:15 AM ROLL FORMING MACHINE SET UP OPERATOR Surgery Replaced By [facility] [address] [place] [address] Neisha Awan MD ESOPHAGOGASTRODUODENOSCOPY 03/21/2025 5:56 AM ROLL FORMING MACHINE SET UP OPERATOR - 03/21/2025 8:08 AM ROLL FORMING MACHINE SET UP OPERATOR Hospital Encounter Replaced By [facility] [address] [place] [address] Neisha Awan MD Gastroesophageal reflux disease, unspecified whether esophagitis present Discharge Disposition: Home or Self Care 03/18/2025 External Device Data STL ABSTRACTION Provider, Abstract 02/25/2025 External Device Data STL ABSTRACTION Provider, Abstract 02/05/2025 External Device Data STL ABSTRACTION Provider, Abstract 02/05/2025 External Device Data STL ABSTRACTION Provider, Abstract 01/28/2025 External Device Data STL ABSTRACTION Provider, Abstract from Last 3 Months Immunizations Immunization Administration Dates Next Due Influenza Seasonal Unspecified Formulation IM ,02/08/2015 Family History Medical History Relation Name Comments Diabetes Father Glaucoma Father Hypertension Father Heart Disease Maternal Grandmother Diabetes Mother Glaucoma Mother Hypertension Mother Heart Disease Paternal Grandmother Hypertension Sister Stroke Sister Relation Name Status Comments Father Maternal Grandmother Mother Alive Paternal Grandmother Sister Social History Tobacco Use Types Packs/Day Years Used Date Smoking Tobacco: Never Smokeless Tobacco: Never Alcohol Use Standard Drinks/Week Comments No 0 (1 standard drink = 0.6 oz pur e alcohol) Feeling Safe Answer Date Recorded Are you in a relationship wi th someone who hurts you emotionally and/or physically? No 03/21/2025 Comments No Sex and Gender Information Value Date Recorded Sex Assigned at Not on file Legal Sex Female 4:02 PM CDT Gender Identity Not on file Sexual Orientation Not on file Occupation Industry Job Start Date Job End Date teacher Not on file Not on file Not on file Last Filed Vital Signs Vital Sign Reading Time Taken Comments Blood Pressure 123/85 03/21/2025 7:50 AM ROLL FORMING MACHINE SET UP OPERATOR Pulse 59 03/21/2025 7:50 AM ROLL FORMING MACHINE SET UP OPERATOR Temperature 36.3 C (97.3 F) 03/21/2025 7:33 AM ROLL FORMING MACHINE SET UP OPERATOR Respiratory Rate 15 03/21/2025 7:50 AM ROLL FORMING MACHINE SET UP OPERATOR Oxygen Saturation 99% 03/21/2025 7:50 AM ROLL FORMING MACHINE SET UP OPERATOR Inhaled Oxygen Concentration - - Weight 96.6 kg (213 lb) 03/21/2025 6:26 AM ROLL FORMING MACHINE SET UP OPERATOR Height 165.1 cm (5' 5) 03/21/2025 6:26 AM ROLL FORMING MACHINE SET UP OPERATOR Body Mass Index 35.45 03/21/2025 6:26 AM ROLL FORMING MACHINE SET UP OPERATOR Plan of Treatment Upcoming Encounters Date Type Department Care Team (Late st Contact Info) Description 11/05/2025 1:00 PM CDT Office Visit [facility] - [address] [place] [address] [place] [address] [facility] [address] [place] [address] Health Maintenance Due Date Last [...] of 2) 2020 BREAST CANCER SCREENING 12/08/2021 12/09/19 21, 12/03/2019, 10/01/2018, Additional history exists INFLUENZA VACCINE (#1) 2024 01/26/2020, 2014 Medical Devices Implanted Type Area Wall Cleaner Device Identifier Shelf Expiration Date Model / Serial / Lot Seamguard Endogia 60 Blk [id number] - [id number] Implanted:Qty : 2 on 04/27/2020 by Neisha Awan MD at [facility] N/A: Abdomen [employer] 10/06/2022 [id number] / / [id number] Seamguard Endogia 60 Prpl [id number] - [id number] Implanted:Qty : 4 on 04/27/2020 by Neisha Awan MD at [facility] N/A: Abdomen [employer] 11/26/2022 [id number] / / [id number] Sealant Floseal W/ Adptr 10ml [id number] - [id number] Implanted:Qty : 1 on 04/01/2015 by Sadi Bernabe MD at [facility] Sealant N/A: Pelvis [employer] 06/07/2016 [id number] / / [id number] Procedures Procedure Name Priority Date/Time Associated Diagnosis Comments UPPER ENDOSCOPY REPORT 7:33 AM ROLL FORMING MACHINE SET UP OPERATOR HELICOBACTER PYLORI RAPID UREASE TEST Routine 03/21/2025 7:08 AM ROLL FORMING MACHINE SET UP OPERATOR Gastroesophageal reflux disease, unspecified whether esophagitis present NC ESOPHAGOGASTRODUODENOSCOP Y TRANSORAL DIAGNOSTIC 03/21/2025 7:00 AM ROLL FORMING MACHINE SET UP OPERATOR Gastroesophageal reflux disease, unspecified whether esophagitis present MAMMO SCREEN BILAT W OR WO CAD Routine 12/08/2020 from Last 3 Months or Most Recently Relevant to Health Maintenance Results * UPPER ENDOSCOPY REPORT (03/21/2025 7:33 AM ROLL FORMING MACHINE SET UP OPERATOR) Narrative Procedure Note Neisha Awan MD - 03/21/2025 7:33 AM CST [facility] Endoscopy Patient Name: Sarah Gonzalez Procedure Date: 03/21/2025 Date of : 1970 Attending MD: Neisha Awan MD, Procedure: Upper GI endoscopy Indications: Heartburn Providers: Neisha Awan MD Referring MD: Allie Reynolds MD Medicines: Monitored Anesthesia Care Complications: No immediate complications. Procedure: Informed consent was obtained for the procedure, including moderate sedation after risks were discussed. Based on the pre-procedure assessment, including review of the patient's medical history, medications, allergies, and review of systems, the patient was deemed to be an appropriate candidate for sedation. A timeout was performed. Continuous ECG monitoring, pulse oximetry, blood pressure monitoring, and direct observation were performed. The Endoscope was introduced through the mouth, and advanced to the second part of duodenum. The upper GI endoscopy was accomplished without difficulty. The patient tolerated the procedure well. Findings: The Z-line was irregular and was found 34 cm from the incisors. LA Grade C (one or more mucosal breaks continuous between tops of 2 or more mucosal folds, less than 75% circumference) esophagitis with no bleeding was found 31 to 34 cm from the incisors. No gross lesions were noted in the entire examined stomach. Biopsies were taken with a cold forceps for Helicobacter pylori testing. Evidence of a sleeve gastrectomy was found in the entire examined stomach. This was characterized by erythema. Bilious fluid was found in the entire examined stomach. A 5 cm hiatal hernia was present. No gross lesions were noted in the entire examined stomach. The exam of the duodenum was otherwise normal. Impression: - Z-line irregular, 34 cm from the incisors. - LA Grade C reflux esophagitis with no bleeding. - No gross lesions in the entire stomach. Biopsied. - A sleeve gastrectomy was found, characterized by erythema. - Bilious gastric fluid. - 5 cm hiatal hernia. - No gross lesions in the entire stomach. Recommendation: - Discharge patient to home (ambulatory). - Return to my office as previously scheduled. Procedure Code(s): --- Professional --- 20311, Esophagogastroduodenoscopy, flexible, transoral; with biopsy, single or multiple CPT copyright 2020 [employer]. All rights reserved. The codes documented in this report are preliminary and upon product lister review may be revised to meet current compliance requirements. Neisha Awan MD 03/21/2025 7:33:17 AM Number of Addenda: [id number], [place] [address] us Neisha Awan MD GI PROCEDURE ORDERABLES Fi nal Result * HELICOBACTER PYLORI RAPID UREASE TEST (03/21/2025 7:08 AM ROLL FORMING MACHINE SET UP OPERATOR) H. PYLORI RAPID UREASE TEST Negative Negative 03/21/2025 2:08 PM ROLL FORMING MACHINE SET UP OPERATOR [facility] Tissue ENTIRE STOMACH / Unknown Collection / Unknown 03/21/2025 7:08 AM ROLL FORMING MACHINE SET UP OPERATOR 03/21/2025 9:41 AM ROLL FORMING MACHINE SET UP OPERATOR Comment: Neisha Awan MD MICROBIOLOGY - GENERAL ORD ERABLES Final Result [facility] SERVICES [facility] CLIA# [id number] [address] [place] [address] * MAMMO SCREEN BILAT W OR WO CAD (12/08/2020) Anatomical Region Laterality Modality Breast Bilateral Mammography us Abstract Provider MAMMO ORDERABLES Edited Result - Final from Last 3 Months or Most Recently Relevant to Health Maintenance Insurance [employer] [id number] RX [facility] Advance Directives For more information, please contact: [phone] * Full Code (Latest Code Status on [...] 6:48 AM 12/12/2014 9:37 AM Care Teams Decorative Engraver Apprentice Relationship Specialty Start Date End Date Allie Reynolds MD [address] [place] [id number] PCP - General Family Practice 02/12/15
--- OUTSIDE RECORDS SUMMARY | 2025-04-01 03:53 | XMS_ITS | Clinical Summary ---
Author Organization [facility] Care Team Providers Care Medical Staff Credentialing Coordinator Name Role Phone Unavailable Primary Care Provider Unavailabl e Social History Tobacco Use Types Packs/Day Years Used Date Smoking Tobacco: Never Assessed Comments Unknown Sex and Gender Information Value Date Recorded Sex Assigned at Not on file Legal Sex Female 12:31 PM DUST COLLECTOR ORE CRUSHING Gender Identity Not on file Sexual Orientation Not on file Plan of Treatment Health Maintenance Due Date Last Done Comments Hepatitis C Virus (HCV) Screening 1970 TdaP Immunization 1970 Hepatitis B Immunization (1 of 3 - 19+ 3-dose series) 1989 Pap Smear 1991 Cervical Cancer Screening (CCS) 2000 HPV/Cotest 2000 Cologuard 2015 Colonoscopy 2015 Colorectal Cancer Screening 2015 Immunochemical Fecal Occult Blood 2015 Pneumococcal Immunization (5 0+ years) (1 of 1 - PCV) 2020 Zoster Immunization (1 of 2) 2020 Influenza Immunization (#1) 2024 01/08/2014 SARS-COV-2 Immunization ( season) 2024 Respiratory Syncytial Virus (RSV) Immunization (Adult) (1 - 1-dose 75+ series) 2045 Human Papillomavirus (HPV) Immunization Aged Out No longer eligible b ased on patient's age to complete this topic Meningococcal Immunization (ACWY) Aged Out No longer eligible based on patient's age to complete this topic Rotavirus Immunization Aged Out No lo nger eligible based on patient's age to complete this topic
--- OUTSIDE RECORDS SUMMARY | 2025-04-01 03:53 | XMS_ITS | Patient Health Record ---
Author Organization [facility] deirdre Address [address] [address], [place] [id number] Phone [phone] Care Team Providers Care Supervisor Counseling And Guidance Name Role Phone DANIELA JOHNSON MD Primary Care Provider Lela Durant, Akgun Unavailable Reason For Referral No Information Medications Medication SIG (Take, Route, Frequency, Duration) Notes Start Date End Date Diagnosis (ICD Code) Status valsartan 80 mg tablet 1 tab(s) orally once a day Active ZyrTEC 10 mg tablet 1 tab(s) orally once a day Active Tylenol Arthritis Caplet 650 mg tablet 1 Tablet orally 4 times a day 10/13/2014 Lumbago with sciatica, unspecified side (ICD_10 - M54.40) Active iron oral Active multivitamin Active calcium po Active biotin Active famotidine 20 mg tablet 1 tab(s) orally 2 times a day Active Social History Tobacco Use: Social History Observation Description Date Details (start date - stop date) Never Smoker NA - NA Sex Observation Social History Observation Description Sex Observation Female Social History Social History Social Info Question Answer Notes Tobacco Use: Smoking Status nonsmoker Additional Details Category Social Info Options Details Social History 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 spouse, elisa yin Marital Status How many times have you been ? 1 Living accomodations: house Problems Problem Type SNOMED Code ICD Code Dates Problem Status W/U Status Risk Notes Problem Long-term current use of drug therapy (743691222) Other penitentiary (current) drug therapy (Z79.899) Added On:01/13 Active confirmed Problem Rheumatoid factor positive (495019121) Rheumatoid factor positive (R76.8) Added On:01/13 Active confirmed Problem Polyarthralgia (76081949) Polyarthralgia (M25.50) Added On:09/15 Active confirmed Problem Sciatica (43001855) Lumbago with sciatica, unspecified side (M54.40) Added On:01/13 Active confirmed Problem Non-smoker (9735193) Non-smoker (Z78.9) Added On:01/13 Active confirmed Problem Arthralgia of the pelvic region and thigh (071387541) Bilateral hip pain (M25.551) Added On:01/13 Active confirmed Problem Myalgia (64789713) Myalgia (M79.10) Added On:09/15 Active confirmed Problem Low back pain (finding) (208891332) Low back pain at multiple sites (M54.5) Added On:08/04 Active confirmed Plan Of Treatment Pending Test Test Name Order Date Sed [...] Insured Coverage Start Date Coverage End Date [facility] [address] [address] [place] [address] [phone] [id number] BILLY GONZALEZ Spouse - patient is the spouse of the insured 1 Medical (General) History Medical History History ICD Code tension headaches [...] History Surgery Date(Month/Year) dnc 1996 C section 1997,2002 tubal ligation 2005 ablation 2006 gallbladder surgery 2015 diagnostic ovarian 2015 uterine ablation 2014-Dec hysterectomy gastric sleeve 2020
[2025-04-01 07:15] VITALS: BP 112/87; PULSE 75; RESP 18; TEMP 36.2; O2SAT 99
[2025-04-01] MEDS: LACTATED RINGERS 1,000 ML 150 ML IV CONT (07:24)
--- NOTE | 2025-04-01 07:39 | WPDANESEPPF ---
Anes - Initial Pre Proc Eval Procedure: Operation Date: 04/01/25 08:30 Proposed Procedures p Screening Colonoscopy - Arturo Mora MD Date/Time: 04/01/25 07:39 Surgeon: Arturo Mora MD Pre Op Diagnosis: Personal history of colon polyps, unspecified Patient Data Age: 54 Gender: F Height: 1.65 m Weight: 94 kg Last Vital Signs Temp 97.1 F L 04/01/25 07:15 Pulse 75 04/01/25 07:15 Resp 18 04/01/25 07:15 BP 112/87 04/01/25 07:15 Pulse Ox 99 04/01/25 07:15 O2 Del Method Room Air 04/01/25 07:15 Allergies Allergy/AdvReac Type Severity Reaction Status Date / Time estrogens, conjugated Allergy Unknown Itching Verified 04/01/25 07:14 morphine Allergy Unknown ITCHING Verified 04/01/25 07:14 Home Medications ?Medication ?Instructions ?Recorded ?Confirmed ?Type cetirizine 10 mg tablet (Zyrtec) 10 mg PO DAILY 01/16/20 04/01/25 History calcium carbonate (Calcium 500) 500 mg PO TID 09/21/21 04/01/25 History iron,carbonyl 100 mg-vitamin C 250 1 tablet PO DAILY 09/21/21 04/01/25 History mg tablet mecobalamin (vitamin B12) 1,000 1,000 mcg sublingual DAILY 09/21/21 04/01/25 History mcg disintegrating tablet,sublingual [id number]-tfblrbhf-dbnc 45 mg-folic 1 cap PO DAILY 09/21/21 04/01/25 History acid 800 mcg-vit K 120 mcg capsule (Bariatric Multivitamins) albuterol sulfate 90 mcg/actuation 1 inh inhalation Q4H PRN shortness 03/15/22 03/13/25 Rx aerosol inhaler of breath or wheezing #8.5 grams montelukast 10 mg tablet 10 mg PO DAILY #90 tabs 09/30/24 03/13/25 Rx (Singulair) fluticasone propionate 93 1 spray intranasal Q12H 12/11/24 04/01/25 History mcg/actuation breath activated aerosol (Xhance) ipratropium bromide 21 mcg (0.03 2 spray intranasal BID 12/11/24 04/01/25 History %) nasal spray Patient hx anesthesia problems: none Family hx anesthesia problems: none Results Review: All pre-operative results and documents have been reviewed as part of the pre-operative evaluation. [facility] Past Medical History Medical History GERD (gastroesophageal reflux disease) JASS (obstructive sleep apnea) CPAP Depression Hypertension Seasonal allergies Rheumatoid arthritis Surgical History Surgical History Status post gastric bypass for obesity History of sleeve gastrectomy History of weight loss surgery History of laparoscopic cholecystectomy Family History Family History Other Depression Family history of heart disease in male family member before age 55 Social History Social History Smoking status: Never smoker Second hand tobacco smoke exposure: No Alcohol intake: never Substance use: never Substance use type: does not use Lack of Transportation: No Lack of Food: Never True Current Housing: I Have Housing Concerned About Future Housing: No Difficulty Paying Gas/Electric Bills: No Difficulty Paying for Meds: No Currently Unemployed: No Education: Bachelor's Degree Difficulty w/ Childcare or Family Care: No Living arrangements: with family Occupation/Education: occupation Gender identity (if verbalized by the patient): Female Spiritual care concerns: No Agree to blood products: Yes Anes - Eval Final PreProcedure Day of Procedure 04/01/25 07:39 Patient weight: obese Lungs: normal air movement Airway: Mallampati scale class II Neurological: alert and oriented Last oral intake: >/= 8 hours ASA classification: III Emergent: no Anesthetic plan: proceed Anesthesia type and monitoring: general GIVS and standard monitoring Results Review: All pre-operative results and documents have been reviewed as part of the pre-operative evaluation. JASS, GERD, BMI 34, active without cp or sob. Informed Consent: The patient's anesthetic plan and its attendant risks and benefits were discussed with the patient/family/POA. Questions were solicited and answers provided to the satisfaction of the patient/family/POA.
--- NOTE | 2025-04-01 08:30 | PM.HPGS ---
History of Present Illness History of Present Illness Consent: Risks, benefits, and alternatives have been discussed and questions answered. Patient agrees to proceed with procedure. Chief complaint: Personal history of colon polyps, unspecified Narrative: Sarah Mathews is a 54 year old female with colon polyp in 2019 Review of Systems Review of Systems: All systems reviewed & are unremarkable except as noted in HPI and below PMFSH Past Medical History Medical History (Updated 04/01/25 @ 08:30 by Arturo Mora MD) Colon polyp GERD (gastroesophageal reflux disease) JASS (obstructive sleep apnea) CPAP Depression Hypertension Seasonal allergies Rheumatoid arthritis Surgical History Surgical History Status post gastric bypass for obesity History of sleeve gastrectomy History of weight loss surgery History of laparoscopic cholecystectomy Family History Family History Other Depression Family history of heart disease in male family member before age 55 Social History Social History Smoking status: Never smoker Second hand tobacco smoke exposure: No Alcohol intake: never Substance use: never Substance use type: does not use Lack of Transportation: No Lack of Food: Never True Current Housing: I Have Housing Concerned About Future Housing: No Difficulty Paying Gas/Electric Bills: No Difficulty Paying for Meds: No Currently Unemployed: No Education: Bachelor's Degree Difficulty w/ Childcare or Family Care: No Living arrangements: with family Occupation/Education: occupation Gender identity (if verbalized by the patient): Female Spiritual care concerns: No Agree to blood products: Yes Meds Home Medications and Allergies Home Medications ?Medication ?Instructions ?Recorded ?Confirmed ?Type cetirizine 10 mg tablet (Zyrtec) 10 mg PO DAILY 01/16/20 04/01/25 History calcium carbonate (Calcium 500) 500 mg PO TID 09/21/21 04/01/25 History iron,carbonyl 100 mg-vitamin C 250 1 tablet PO DAILY 09/21/21 04/01/25 History mg tablet mecobalamin (vitamin B12) 1,000 1,000 mcg sublingual DAILY 09/21/21 04/01/25 History mcg disintegrating tablet,sublingual wbjgnhlw-ohblsukm-wfuc 45 mg-folic 1 cap PO DAILY 09/21/21 04/01/25 History acid 800 mcg-vit K 120 mcg capsule (Bariatric Multivitamins) albuterol sulfate 90 mcg/actuation 1 inh inhalation Q4H PRN shortness 03/15/22 03/13/25 Rx aerosol inhaler of breath or wheezing #8.5 grams montelukast 10 mg tablet 10 mg PO DAILY #90 tabs 09/30/24 03/13/25 Rx (Singulair) fluticasone propionate 93 1 spray intranasal Q12H 12/11/24 04/01/25 History mcg/actuation breath activated aerosol (Xhance) ipratropium bromide 21 mcg (0.03 2 spray intranasal BID 12/11/24 04/01/25 History %) nasal spray Allergies Allergy/AdvReac Type Severity Reaction Status Date / Time estrogens, conjugated Allergy Unknown Itching Verified 04/01/25 07:14 morphine Allergy Unknown ITCHING Verified 04/01/25 07:14 Vital Signs Vital Signs - 24 hr 04/01/25 07:15 Temperature 97.1 F L Pulse Rate 75 Respiratory Rate 18 Blood Pressure 112/87 Pulse Oximetry 99 Oxygen Delivery Room Air Exam Const: General: comfortable and no acute distress HENMT: Face/Nose/Sinus: Normal nares present Eyes: General: appearance normal, both eyes and all related structures Neck: Neck: no JVD Resp: Auscultation: clear to auscultation bilaterally Cardio: Rate: regular rate Rhythm: regular rhythm GI: Inspection: non-distended GI Palp: Yes Soft to palpation Skin: General skin exam: normal color Psych: Mental Status: mental status grossly normal Assessment and Plan Assessment and plan (1) Colon polyp: Code(s): K63.5 - Polyp of colon Status: Acute Assessment and Plan: colonoscopy
[2025-04-01 08:44] VITALS: BP 109/62; PULSE 64; RESP 27; O2SAT 99
[2025-04-01 08:54] VITALS: BP 99/69; PULSE 63; RESP 14; O2SAT 99
[2025-04-01 09:04] VITALS: BP 115/71; PULSE 63; RESP 16; O2SAT 99
== END 2025-04-01 09:13 | disposition home or self-care (01) ==
PROVIDERS: PCP Student in an Organized Health Care Education/Training Program; Referring Provider Internal Medicine Gastroenterology; Visit Provider Internal Medicine Gastroenterology
PROC: 0DJD8ZZ Inspection of Lower Intestinal Tract, Via Natural or Artificial Opening Endoscopic (ICD-10-PCS; CPT 45378; principal; 2025-04-01 08:30)
DX: Z12.11 Encounter for screening for malignant neoplasm of colon (principal); K64.8 Other hemorrhoids; Z86.0100 Personal history of colon polyps, unspecified; E66.9 Obesity, unspecified; Z68.34 Body mass index [BMI] 34.0-34.9, adult
CPT/HCPCS: 45378; J2003; J2704; J7120